=== PATIENT | female | born 2000 | race Hispanic/Latino ===

== ENCOUNTER 2019-06-11 09:24 | Inpatient (IN) ==
[2019-06-11 10:37] LABS: URINE SOURCE VOIDED
[2019-06-11] MEDS ORDERED: TYLENOL PO PRN (10:41)
[2019-06-11] MEDS ORDERED: PEPCID IV PRN (10:41)
[2019-06-11] MEDS ORDERED: STADOL IV PRN (10:41)
[2019-06-11] MEDS ORDERED: ZOFRAN IV PRN (10:41)
[2019-06-11] MEDS ORDERED: AMPICILLIN 2 GM in NS 100 ML IV ONE (10:41)
[2019-06-11] MEDS ORDERED: PEPCID PO PRN ×2 (10:41)
[2019-06-11] MEDS ORDERED: REGLAN PO PRN (10:41)
[2019-06-11] MEDS ORDERED: KEFZOL 2 GM/D5W 2 GM/50 ML IVPB IV PRN (10:41)
[2019-06-11 10:43] LABS: BASO# 0.01 X1000 (0.0-0.2); BASO% 0.1 % (0.0-0.8); EOS# 0.03 X1000 (0.0-0.7); EOS% 0.3 % (0.0-10.0); HEMATOCRIT 34.5 % (37.0-47.0); HEMOGLOBIN 10.9 g/dL (12.0-16.0); IMM GRAN# 0.03 X1000 (0.0-0.04); IMM GRAN% 0.3 % (0.0-0.5); LYMPH% 12.5 % (20.5-51.1); MCH 27.9 PG (27-31); MCHC 31.6 g/dL (33-37); MCV 88.2 FL (81-99); MONO# 0.51 X1000 (0.11-0.59); MONO% 5.3 % (1.7-9.3); MPV 9.9 FL (7.4-10.4); NEUT# 7.82 X1000 (1.4-6.5); NEUT% 81.5 % (42.2-75.2); PLT 320 X1000 (130-400); RBC 3.91 XMIL (4.2-5.4); RDW 13.8 % (11.5-14.5)
[2019-06-11] MEDS ORDERED: SODIUM CHLORIDE 0.9% INJ SCH (10:45)
[2019-06-11] MEDS ORDERED: MINERAL OIL PO PRN (10:57)
[2019-06-11] MEDS ORDERED: XYLOCAINE-MPF 1% INJ PRN (10:57)
[2019-06-11 11:03] LABS: BILIRUBIN URINE NEGATIVE (NEGATIVE); BLOOD URINE NEGATIVE (NEGATIVE); COLOR YELLOW; GLUCOSE URINE NEGATIVE (NEGATIVE); KETONE URINE NEGATIVE (NEGATIVE); LEUKOCYTES URINE MODERATE (NEGATIVE); NITRITE URINE NEGATIVE (NEGATIVE); PH URINE 6.5; PROTEIN URINE 30 mg/dL (NEGATIVE); SP GRAVITY URINE 1.035; TURBIDITY URINE CLEAR (CLEAR); UROBILINOGEN URINE 2 mg/dL (NORMAL)
[2019-06-11 11:07] LABS: UR AMPHETAMINES QUAL NONE DETECTED (NONE DETECT); UR BARBITUATES QUAL NONE DETECTED (NONE DETECT); UR BENZODIAZEPIN QUAL NONE DETECTED (NONE DETECT); UR CANNABINOIDS QUAL NONE DETECTED (NONE DETECT); UR COCAINE QUAL NONE DETECTED (NONE DETECT); UR METHADONE QUAL NONE DETECTED (NONE DETECT); UR OPIATES QUAL NONE DETECTED (NONE DETECT); UR OXYCODONE QUAL NONE DETECTED (NONE DETECT); UR PCP QUAL NONE DETECTED (NONE DETECT)
[2019-06-11] MEDS: LR 1,000 ML IV SCH ×2 (11:08→16:48)
[2019-06-11 11:20] LABS: RAPID HIV PRESUMPTIVE NEGATIVE; RPR NON-REACTIVE (NONREACTIVE); RUBELLA SCREEN NON IMMUNE (IMMUNE)
[2019-06-11] MEDS: AMPICILLIN 1 GM in NS 50 ML IV SCH ×2 (15:02→20:23)
--- NOTE | 2019-06-11 15:36 | Diag Imaging Result Doc PS360 ---
US OBS COMPLETE > 14 WKS - 06/11/2019 INDICATION: Dates TECHNIQUE: COMPARISON: None FINDINGS: There is a single intrauterine . Positioning is cephalic. Estimated gestational age is 35 weeks six days +/- 17 days. Estimated delivery date is 07/10/2019. There is significant oligohydramnios. The MARIA LUISA is about seven. Normal cardiac activity at 118 bpm. Placenta is anterior and appears normal. Normal anatomy including head and intracranial contents, four-chamber heart, diaphragms, and stomach. Normal three-vessel umbilical cord. Estimated weight is 2838 g. IMPRESSION: Advanced . Oligohydramnios. This may indicate rupture of membranes. Electronically signed by Denton Champion 06/11/2019 3:33 PM
[2019-06-11] MEDS: PITOCIN 30 UNITS/NS 30 UNIT/500 ML IV.SOLN IV SCH ×2 (17:04→17:45)
[2019-06-11] MEDS ORDERED: AMBIEN PO PRN (17:17)
[2019-06-11] MEDS ORDERED: BOOSTRIX VACCINE IM ONE (17:17)
[2019-06-11] MEDS ORDERED: ATARAX PO PRN (17:17)
[2019-06-11] MEDS ORDERED: HYDROXYZINE IM PRN (17:17)
[2019-06-11] MEDS ORDERED: BENADRYL PO PRN (17:17)
[2019-06-11] MEDS ORDERED: PITOCIN IM PRN (17:17)
[2019-06-11] MEDS ORDERED: PERI MEDS (DERMOPLAST/NUPERCAINAL/TUCKS) MISC PRN (17:17)
[2019-06-11] MEDS ORDERED: M-M-R II VACCINE SUBQ ONE (17:17)
[2019-06-11] MEDS ORDERED: BENADRYL IV PRN (17:17)
[2019-06-11] MEDS ORDERED: CYTOTEC PO PRN (17:17)
[2019-06-11] MEDS ORDERED: CYTOTEC PR ONE (17:25)
[2019-06-11] MEDS ORDERED: CYTOTEC ONE (17:29)
[2019-06-11] MEDS ORDERED: PITOCIN 20 UNITS/NS 20 UNITS/1,000 ML IV.SOLN IV SCH (17:30)
--- NOTE | 2019-06-11 17:33 | HISTORY AND PHYSICAL ---
The patient is a 27-year-old 2, para 1, with no care appearing near term in active phase of labor at 6 cm dilated. She states through interpreter for the deaf that her 1st baby was born vaginally in [facility]. PREVIOUS MEDICAL HISTORY: Negative. SURGICAL HISTORY: Negative. ALLERGIES MEDICINES: None, vitamins. REVIEW OF SYSTEMS: Negative for chest pain, shortness of breath headache. SOCIAL HISTORY: Negative for smoking, alcohol or drugs. FAMILY HISTORY: Noncontributory. ALLERGIES TO MEDICINES: None. PHYSICAL EXAMINATION: This is a well-developed, well-nourished thin woman appearing her stated age. HEENT: Grossly normal. LUNGS: Unlabored breathing. HEART: Regular rate and rhythm. ABDOMEN: Gravid to 32 to 4 cm above the umbilicus. PELVIC: As above. EXTREMITIES: Without clubbing, cyanosis, or edema. ASSESSMENT: 27-year-old 2, para 1 at near term presents to labor and delivery in active phase labor 6 cm dilated, bulging bag of water. ASSESSMENT: 1. Start group B strep prophylaxis. 2. Ultrasound to confirm gestational age. 3. Anticipate vaginal delivery. 4. Draw labs. 5. Estimated weight is 3100 g. 6. well being reassured, reactive tracing.
[2019-06-11] MEDS: MOTRIN PO PRN (18:17)
[2019-06-11] MEDS: PERICOLACE PO SCH (20:23)
[2019-06-11 20:24] LABS: HIV ANTIBODY SCREEN SEE COMMENTS
--- NOTE | 2019-06-11 23:01 | OPERATIVE NOTE ---
DATE OF DELIVERY: 06/11/2019 PROCEDURE: Normal spontaneous vaginal delivery. ESTIMATED BLOOD LOSS: 350 mL. COMPLICATIONS: None. DESCRIPTION OF PROCEDURE: The patient presented in active phase labor, made normal progress. Underwent rupture membranes at 9 cm with clear fluid. She rapidly progressed to complete and pushed for 2 contractions and delivered over an intact perineum, a live-born male . The was handed to the maternal abdomen where the cord was clamped x2 and cut. The placenta delivered intact spontaneously with a three-vessel cord and cord blood is passed off. The perineum was inspected and found to be completely hemostatic and intact. Apgars and weight pending at time of dictation.
[2019-06-12] MEDS: PITOCIN 30 UNITS/NS 30 UNIT/500 ML IV.SOLN IV SCH ×2 (01:50→01:53)
[2019-06-12 06:09] LABS: HEMATOCRIT 26.9 % (37.0-47.0); HEMOGLOBIN 8.4 g/dL (12.0-16.0); MCH 27.8 PG (27-31); MCHC 31.2 g/dL (33-37); MCV 89.1 FL (81-99); MPV 9.5 FL (7.4-10.4); RBC 3.02 XMIL (4.2-5.4); RDW 13.6 % (11.5-14.5); WBC 11.4 X1000 (4.8-10.8)
[2019-06-12 09:03] LABS: HEPATITIS B SURFACE ANTIGEN SEE COMMENTS
[2019-06-12] MEDS: PERICOLACE PO SCH (21:03)
[2019-06-12] MEDS: FERROUS SULFATE PO SCH (21:07)
--- NOTE | 2019-06-13 07:11 | OB/GYN PROGRESS NOTE ---
- Subjective 18 yo PPD#2 s/p at term, no care Patient seen and examined. No complaints this AM. She notes normal lochia. She is ambulating and voiding without difficulty. She is tolerating a regular diet, no nausea/vomiting. She is bottle feeding. Baby is doing well. OB Physical Exam Vital Signs - 8 hr 06/13/19 00:02 Temperature 97.7 F Pulse Rate 65 Respiratory Rate 18 Blood Pressure 93/51 O2 Sat by Pulse Oximetry 98 - CONSTITUTIONAL General Appearance: appears well, alert, no apparent distress - EYES Eyes: PERRL/EOMI - RESPIRATORY Respiratory: lungs clear, normal breath sounds, no respiratory distress - CARDIOVASCULAR Cardiovascular: regular rate, rhythm - GASTROINTESTINAL (ABDOMEN) Abdominal Exam: normal bowel sounds, non tender, soft, other (fundus firm, below umbilicus) - MUSCULOSKELETAL Extremity: normal range of motion, non-tender, no pedal edema - SKIN Integumentary: normal color - NEUROLOGIC Neurologic: grossly normal - PSYCHIATRIC Psych/Mental Status: normal mood/affect Active Medications Generic Name Dose Route Start Last Admin Trade Name Freq PRN Reason Stop Dose Admin Acetaminophen 650 mg 06/11/19 10:41 Tylenol PO Q4-6H PRN PRN Headache Benzocaine 1 each 06/11/19 17:17 Karmen Meds (Dermoplast/Nupercainal/Tucks) MISC 3-4XDAY PRN PRN episiotomy/hemorrhoids Butorphanol Tartrate 2 mg 06/11/19 10:41 06/11/19 12:55 Stadol IV 2 mg PRN PRN Administration Pain Diphenhydramine HCl 12.5 mg 06/11/19 17:17 Benadryl IV Q4H PRN PRN Itching Diphenhydramine HCl 25 mg 06/11/19 17:17 Benadryl PO Q4H PRN PRN Itching Famotidine 40 mg 06/11/19 10:41 Pepcid PO Q12H PRN PRN GI upset or indigestion Famotidine 20 mg 06/11/19 10:41 Pepcid IV Q12H PRN PRN GI upset or indigestion Famotidine 20 mg 06/11/19 10:41 Pepcid PO ONCE PRN PRN section Ferrous Sulfate 325 mg 06/12/19 09:00 06/12/19 21:07 Ferrous Sulfate PO 325 mg DAILY ISHMAEL Administration Hydroxyzine HCl 50 mg 06/11/19 17:17 Atarax PO Q3-4H PRN PRN Nausea Hydroxyzine HCl 50 mg 06/11/19 17:17 Hydroxyzine IM Q3-4H PRN PRN Nausea Lactated Ringer's 1,000 mls @ 0 mls/hr 06/11/19 10:45 06/11/19 16:48 Lr IV 125 mls/hr .Q0M ISHMAEL Administration As Directed Oxytocin/Sodium Chloride 20 units in 1,000 mls @ 0 mls/hr 06/11/19 17:30 Pitocin 20 Units/Ns IV .Q0M ISHMAEL As Directed Ibuprofen 800 mg 06/11/19 17:17 06/11/19 18:17 Motrin PO 800 mg Q8H PRN PRN Administration cramping Metoclopramide HCl 10 mg 06/11/19 10:41 Reglan PO ONCE PRN PRN section Misoprostol 800 microgm 06/11/19 17:17 Cytotec PO PRN PRN Severe bleeding Ondansetron HCl 4 mg 06/11/19 10:41 Zofran IV PRN PRN Nausea Oxytocin 20 unit 06/11/19 17:17 Pitocin IM PRN PRN Severe bleeding Senna/Docusate Sodium 1 each 06/11/19 21:00 06/12/19 21:03 Pericolace PO Not Given QHS ISHMAEL Sodium Chloride 5 - 10 ml 06/11/19 10:45 Sodium Chloride 0.9% INJ DIRECTED ISHMAEL Zolpidem Tartrate 10 mg 06/11/19 17:17 Ambien PO HS PRN PRN Sleep Laboratory Results - last 24 hr 06/11/19 06/11/19 10:17 10:17 Ur Chlamydia/GC DNA SEE COMMENTS Hep Bs Antigen SEE COMMENTS OB Assessment & Plan (1) Status post vaginal delivery Status: Acute Plan: 18 yo PPD#2 s/p at term, no care, anemia, RNI 1. HD stable, afebrile 2. Anemia> Iron supplement started yesterday 3. Routine PP care 4. Bottle feeding 5. Plan for d/c home today 6. MMR vaccine prior to d/c
[2019-06-13] MEDS: FERROUS SULFATE PO SCH (08:33)
[2019-06-13] MEDS: MOTRIN PO PRN (08:33)
[2019-06-13 08:40] VITALS: BP 88/52
[2019-06-13] MEDS ORDERED: DEPO-PROVERA IM ONE (13:30)
--- NOTE | 2019-06-14 05:40 | DISCHARGE SUMMARY ---
ADMISSION DATE: 06/11/2019 DISCHARGE DATE: 06/13/2019 CONDITION ON DISCHARGE: Stable. ADMITTING PHYSICIAN: Dr. Iverson. FINAL DIAGNOSES: 1. A 18-year-old G2, P2, 0-0-2 day #2 status post spontaneous vaginal delivery at term. 2. No care. 3. Rubella nonimmune status. 4. Anemia. HOSPITAL COURSE: The patient was admitted to Labor and Delivery on 06/10 in active phase of labor. She had no care this . She underwent a spontaneous vaginal delivery that was uncomplicated on 06/10. She received ampicillin for GBS prophylaxis. She had a routine course. On day #2, she was deemed stable for discharge. She is ambulating and voiding without difficulty. She is tolerating regular diet, and noted minimal lochia. She is bottle-feeding her infant. Prior to discharge, she received a MMR vaccine for her rubella nonimmune status. She also received Depo-Provera injection for contraception. This contraception option was discussed with the patient, and she was instructed that she needed to receive it every 12 weeks. [facility] can [facility] or through our clinic in [facility]. She was discharged home in stable condition. DISCHARGE MEDICATIONS: 1. Motrin 800 mg p.o. q.8 hours p.r.n. pain. 2. Ferrous Sulfate 325 mg p.o. daily. 3. Karmen Colace 100 mg p.o. at bedtime p.r.n. constipation. DISCHARGE INSTRUCTIONS: Patient instructed to notify doctor with temperature greater than 100.4 degrees Fahrenheit, vaginal bleeding greater than a pad an hour, foul-smelling discharge, or severe abdominal pain. She was instructed to place nothing in her vagina for 6 weeks. No tampons/douching/sex. FOLLOWUP APPOINTMENTS: Patient instructed to follow up with Dr. Ibarra in 6 weeks for visit. She was informed that she can receive a Depo Provera shot for contraception every 12 weeks through the health department or through our clinic. An Shareight director career was used for theentire visit. [place] ID #[id number]. Name: Quinn. MTDD
== END 2019-06-13 14:55 | disposition home or self-care (01) | DRG 807 ==
LOC: OPLD 09:24 → LD 09:29
PROVIDERS: ADMIT Obstetrics & Gynecology; ATTEND Obstetrics & Gynecology